=== PATIENT | female | born 1970 | race Caucasian/White ===

== ENCOUNTER 2016-06-23 10:18 | Inpatient (IN) | payer OTHER ==
[~2016-06-23] VITALS: Ht 152.4 cm; Wt 59.0 kg
[~2016-06-23 10:18] MED LIST: ANUHCC PR; APAP/HYDROCODON1 T13 PO; ASACOL400 MG PO; CIPRO500 MG PO; CIPROFLOXACIN500 MG PO; CLINDAMYCIN HC300 MG PO; ELA10 PO; FER300 PO; FERROUS SULFAT325 M2 PO; FLA500 PO; IMU50 PO; LAC PO; LEVAQUIN750 MG PO; LIALDA1.2 GM PO; MIRALAX17 GM/Dose PO; NORCO1 TA2 PO; PREDNISONE50 MG PO; VENTOLIN H0.09 MG/A1 IH; ZYRTEC10 MG PO
--- NOTE | 2016-06-23 12:27 | NUR ---
PT BROUGHT TO ED BY FROM HOME C/O ABDOMINAL PAIN WITH VOMITING AND DIARRHEA X3 WEEKS. PT REPORTS HX OF ULCERTIVE COLITIS AND STATES SHE IS HAVING A FLARE UP, LAST ONE LAST YEAR. PT REPORTS HAVING 4-6 EPISODES OF DIARRHEA WITH BRIGHT RED BLOOD AND VOMITING EACH TIME X3 WEEKS. PT ALSO REPORTS DECREASED APPETITE AND BLQ CRAMPING PAIN. PT A/O X4, CLEAR SPEECH, RESPS EVEN AND UNLABORED, SKIN WARM/DRY TO TOUCH, PALE, ABDOMEN SOFT/ROUND, NON TENDER, NO S/S OF DISTRESS NOTED.
--- NOTE | 2016-06-23 13:18 | NUR ---
MEDICATED ORDERED. NS BOLUS INFUSING.
[2016-06-23 13:22] LABS: BASOPHIL % 0.4 % (0-2); RED CELL DISTRIBUTION WIDTH 13.7 % (11.5-14.5)
[2016-06-23 13:24] LABS: PLATELET COUNT 463 x10^3mcL (130-400)
[2016-06-23 13:27] LABS: CARBON DIOXIDE 29.2 mmol/L (21-32); CHLORIDE SERUM 102 mmol/L (98-107); CREATININE SERUM 0.8 mg/dL (0.6-1.0); GFR1 > 60 mL/min; GLUCOSE SERUM 89 mg/dL (74-106); POTASSIUM SERUM 3.8 mmol/L (3.5-5.1); SODIUM SERUM 140 mmol/L (136-145)
--- NOTE | 2016-06-23 13:38 | NUR ---
TAKEN TO CT. NO SIGNS OF DISTRESS.
[2016-06-23 13:44] LABS: ALBUMIN 3.8 g/dL (3.4-5.0); ALKALINE PHOSPHATASE 85 U/L (46-116); ALT/SGPT 17 U/L (14-59); AST/SGOT 10 U/L (15-37); BILIRUBIN TOTAL 0.35 mg/dL (0.20-1.00); LIPASE 120 IU/L (73-393); MAGNESIUM 1.8 mg/dL (1.8-2.4)
[2016-06-23 13:45] LABS: TOTAL PROTEIN, SERUM 8.8 g/dL (6.4-8.2)
--- NOTE | 2016-06-23 13:51 | NUR ---
PT BACK FROM CT WITH NO INCIDENCE.
--- NOTE | 2016-06-23 14:16 | NUR ---
PT LAYING IN ED GURNEY IN POSITION OF COMFORT, A/O X4, REPORTS PAIN LEVEL DECREASED TO 1/10 ON PAIN SCALE, RESPS EVEN AND UNLABORED, NO S/S OF DISTRESS NOTED. COMFORT MEASURSE IN PLACE, AT BEDSIDE.
--- NOTE | 2016-06-23 15:11 | NUR ---
DR. MALONEY AT BEDSIDE DISCUSSING PLAN OF CARE WITH PT.
--- NOTE | 2016-06-23 15:17 | NUR ---
RESIDENT AT BEDSIDE FOR EVAL.
--- NOTE | 2016-06-23 15:47 | NUR ---
REPORT CALLED TO DAVID RIVERA. PT TO BE ADMITTED TO TELE ROOM 220B. PT IN NO DISTRESS.
[2016-06-23 15:58] LABS: CHOLESTEROL/HDL RATIO 4.8
[2016-06-23 16:06] LABS: UA SPECIFIC GRAVITY >=1.030 (1.005-1.035); microscopic required? YES; urine erythrocyte 1+ (NEGATIVE)
[2016-06-23 16:09] LABS: T3 TOTAL 1.21 ng/mL
[2016-06-23 16:17] VITALS: BP 102/65
[2016-06-23 16:20] LABS: AMPHETAMINE QUAL UR NONE DETECTED (NEG <=1000)
[2016-06-23 16:22] LABS: FREE T4 1.22 ng/dL (0.76-1.46); FREE THYROXINE INDEX 2.8 ug/dL (1.4-4.5); T4(THYROXINE) 9.8 ug/dL (4.7-13.3)
--- NOTE | 2016-06-23 16:29 | NUR ---
REC'D AOX4, SPEECH CLEAR. C/O DIZZINESS, LIGHT-HEADEDNESS, BLOODY DIARRHEA THIS AM AND ABD PAIN. AT THE BEDSIDE. ON RA, NO SOB NOTED. ATTACHED TELE. DENIES CHEST PAIN. IV ON RAC WNL. ORIENTED PT TO ROOM AND SURROUNDINGS. CALL LIGHT WITHIN REACH, PROVIDED REPORT TO DAVID RIVERA
--- NOTE | 2016-06-23 16:45 | NUR ---
PATIENT CALM AND COOPERATIVE. PERIPHERAL PULSES PALPABLE NO EDEMA. STATES HAD BLOODY LOOSE DIARRHEA THIS MORNING. PATIENT DENIES DISCOMFORT AT THIS TIME. REQUESTING FOR ICE CHIPS, PROVIDED. DENIES NAUSEA, WILL CONT TO MONITOR.
--- NOTE | 2016-06-23 17:25 | NUR ---
PATIENT HAD VOMIT EPISODE X1, SMALL DARK AMOUNT. ZOFRAN GIVEN. WILL CONT TO MONITOR.
[2016-06-23 17:49] VITALS: BP 105/68
--- NOTE | 2016-06-23 18:45 | NUR ---
PATIENT STATES FEELING BETTER AND DENIES NAUSEA AT THIS TIME AFTER ZOFRAN. IV SITE WNL, INFUSING NS WELL. NO SIGNFICANT CHANGE IN CONDITION. WILL CONT TO MONITOR AND ENDORSE TO NOC RN.
--- NOTE | 2016-06-23 19:40 | NUR ---
RECEIVED Pt AAOX3 CALM AND COOPERATIVE WITH CARE. DENIES ANY CHEST PAIN. LUNG SOUNDS ARE CTA BILATERALLY. ACTIVE BOWEL SOUNDS X4 QUADS. DENIES ANY ABD DISCOMFORT AT THIS TIME. VOIDS FREELY. IV SITE TO LAC IS PATENT. RADIAL AND PEDAL PULSES ARE PRESENT. MOVES ALL EXTREMITIES, NO EDEMA NOTED. SCD'S IN PLACE. RE-ORIENTED TO ROOM AND CALL LIGHT SYSTEM WITHIN EASY REACH. WILL CONTINUE TO MONITOR.
--- NOTE | 2016-06-23 20:48 | NUR ---
MEEDICATED FOR ABD PAIN AT 6/10 WITH MORPHINE IV. WILL CONTINUE TO MONITOR.
--- NOTE | 2016-06-23 20:51 | NUR ---
GAVE PT MORPHINE 2 MG IVP FOR C/O PAIN TO ABD, SCALE OF 8/10. RESP IS NOT LABORED, ON ROOM AIR. WILL CONTINUE TO MONITOR.
[2016-06-23 22:25] VITALS: BP 96/67
--- NOTE | 2016-06-23 22:50 | NUR ---
Pt's OWN MEDICATION ZYRTEC TAKEN DOWN TO PHARMACY BY DR. SPAIN. Pt TAKES 1 TAB PO QD FOR ALLERGIES. AWARE.
--- NOTE | 2016-06-23 23:45 | NUR ---
Pt DENIES ANY PAIN AT THIS TIME.
--- NOTE | 2016-06-24 03:44 | NUR ---
C/O NAUSEA NO VOMITING, MEDICATED WITH ZOFRAN IV. WILL CONTINUE TO MONITOR.
--- NOTE | 2016-06-24 05:31 | NUR ---
Pt MEDICATED NEEDED FOR NAUSEA AND ABDOMINAL PAIN. NO VOMITING NOTED. VOIDS FREELY. NO BOWEL MOVEMENT. IV SITE REMAINS PATENT. PT IS NPO. SAFETY AND COMFORT MEASURES REMAIN IN PLACE. WILL CONTINUE TO MONITOR.
[2016-06-24 05:59] VITALS: BP 109/64
[2016-06-24 06:26] LABS: BASOPHIL % 0.5 % (0-2); CALCIUM 8.2 mg/dL (8.5-10.1); CARBON DIOXIDE 26.5 mmol/L (21-32); CHLORIDE SERUM 106 mmol/L (98-107); CREATININE SERUM 0.7 mg/dL (0.6-1.0); GFR1 > 60 mL/min; GLUCOSE SERUM 85 mg/dL (74-106); MAGNESIUM 1.8 mg/dL (1.8-2.4); PHOSPHOROUS 3.3 mg/dL (2.5-4.9); PLATELET COUNT 341 x10^3mcL (130-400); POTASSIUM SERUM 3.4 mmol/L (3.5-5.1); RED CELL DISTRIBUTION WIDTH 13.8 % (11.5-14.5); SODIUM SERUM 140 mmol/L (136-145)
--- NOTE | 2016-06-24 06:46 | NUR ---
I HAVE REVIEWED THE DATA COLLECTION BY JASE (NAME):JUSTO MCKAY ENTERED ON (DATE/TIME): 06/23/161939 I CONCUR WITH THE DATA AND ANY EXCEPTIONS OR COMMENTS ARE LISTED BELOW:
--- NOTE | 2016-06-24 07:10 | NUR ---
BEDSIDE REPORT RECEIVED FROM [facility] SHIFT NURSE AT THIS TIME. PATIENT ASLEEP, NO SIGNS OF DISTRESS NOTED, BREATHING EVEN AND UNLABORED. ALL SAFETY MEASURES IN PLACE, WILL CONTINUE TO MONITOR.
--- NOTE | 2016-06-24 07:50 | NUR ---
TELE DISCONTINUED AT THIS TIME PER MD ORDER AND RETURNED TO RIGGING ENGINEER, NS IVF RATE CHANGED TO 60 ML/HR PER ORDER, INFUSING TO LAC, NO REDNESS OR INFILTRATION NOTED TO SITE. PATIENT STATES SHE HAS A HEADACHE, PRESSURE LIKE, CONSTANT, ALL ACROSS HER FOREHEAD 6/10, MEDICATED FIORECIT (SEE EMAR). ON ROOM AIR, SCD'S IN PLACE, ALL NEEDS ATTENDED TO, ALL SAFETY MEASURES IN PLACE, WILL CONTINUE TO MONITOR.
--- NOTE | 2016-06-24 09:20 | NUR ---
ROUNDS MADE AT THIS TIME WITH MD TEAM, CHARGE NURSE JASMYNE, AND DR CORNEJO. PATIENT ASLEEP, EASILY AROUSED VIA VERBAL STIMULI. ALL QUESTIONS AND CONCERNS ADDRESSED, DR AGRAWAL MADE AWARE OF DR GREENE ASSESSING THE PATIENT. ALL SAFETY MEASURES IN PLACE, WILL CONTINUE TO MONITOR.
[2016-06-24 10:11] VITALS: BP 95/52
--- NOTE | 2016-06-24 12:04 | NUR ---
PATIENT AWAKE, ALERT, NO SIGNS OF DISTRESS NOTED, AT BEDSIDE. ALL NEEDS ATTENDED TO, ALL SAFETY MEASURES IN PLACE, WILL CONTINUE TO MONITOR.
[2016-06-24 14:56] VITALS: BP 101/63
--- NOTE | 2016-06-24 15:38 | NUR ---
Initial Nutrition Assessment Dx: GI D/O 2/2 Ulcerative Colitis Exacerbation vs perictal fistula PMHx: Ulcerative Colitis X 20+ years PSHx: (2007 no complications), L foot surgery, 3 surgeries for fistula, last performed by Dr. Salas Labs: K+ 3.4L, BG 85, Alb 3.8, H/H 11.4/35L Meds: Cipro, colace, D50, fioricet, humulin R, lactinex, morphine, NS, zofran Current Diet Order: Full Liquid (06/24-Lunch) PO Intakes: NPO for breakfast, 2% L (06/24) Ht: 152.4cm,60". Wt: 130lbs, 58.96kg. BMI: 25.4 kg/m2 (Overweight) IBW: 100lb, 45.4 kg. %IBW: 130%. UBW: 141lbs x 3 weeks ago Age: 45 Y/O F Food Allergies: Kiwi Skin: intact. Sahil:21 Edema: None noted GI:C/O loose stools, mild nausea, bowel sounds active, abd soft/round . Last BM:3 loose (06/24) RN Trigger: N/V/D >3 days; Poor PO intake >3 days Pt admitted w/GI D/O 2/2 Ulcerative Colitis Exacerbation vs perictal fistula. As per doctor's progress note 06/24-Patient still having severe abdominal pain today with multiple episodes of diarrhea. Patient also complaining of fatigue and headache. Pt seen at bedside w/ no family present, pt requested interview in Malay, the RD agreed and translated, the pt reports feeling nauseous and C/O diarrhea, did not vomit today but was having emesis episodes last night w/ PM RN who was wearing lots of perfume, states perfumes and heavy smells make her vomit, only tried a couple of spoons of ice cream but did not want to eat anything else for lunch, states cold foods like ice cream calms her stomach, UBW: 14lbs x 1 wk ago, during that time the pt was having UC flare ups to the point where the pt was unable to keep food down, attributes the wt loss to her GI symptoms and lack of appetite, the RD reviewed w/ pt on low residue diet, Cipro DNI, and tips to manage nausea + diarrhea at bedside, educational handouts in Malay given, the pt was highly receptive and engaged, was open to trying Boost to aid in low PO intakes but only strawberry flavour. The RD F/U Dr. Harkins regarding nutrition findings and recs, he was agreeable and implemented. As per bed huddles 06/24- Dr. Alan recommends no procedure at this time. Malnutrition alert form completed 06/24. Problem with: N: Yes. V: None. D: Yes. C: None. Problem with: Chewing: None. Swallowing: None. Current Appetite: poor, pt has little appetite Recent Weight Change: 11lbs. % Weight Change: 8 (Severe) Vitamin/Supplement Use: none Diet at Home: has not been able to keep food down for the past 3 weeks d/t severe N+V w/ diarrhea Physical Activity: none Education: none Estimated Nutritional Needs Based on CBW 130 lb, 58.96kg Energy: 0967-0165 kcal/day (30-35 kcal/kg for Ulcerative Colitis Flare-Up) Protein: 60-71 g/day (1-1.2 g/kg for Ulcerative Colitis Flare-Up) Fluid: 7351-9827 ml/day (30-35 ml/kg for Ulcerative Colitis Flare-Up) or per MD Nutrition Diagnosis 1. Malnutrition related to inadequate protein/energy intake 2/2 Ulcerative Colitis Exacerbation as evidenced by pt C/O loose stools, nausea, meeting 5% of needs, 11lbs wt loss in 3 weeks, % Weight Change: 8, and poor PO intake SPECIAL EDUCATION ASSISTANT Intervention 1. Full Liquid diet w/ Boost TID (720kcals, 30g protein). Make food preferences known. 2. Theragran and Vitamin C 500gm BID for intestinal healing 3. If the pt is able to tolerate diet, consider advancing to Low Residue w/ Boost BID (480kcals, 20g protein). 4. If the pt is unable to tolerate/advance diet w/in 5-7 days, consider TPN. 5. Adjust Zofran + BM regimen PRN 6. Daily wts to assess trends Monitor/Evaluate Goal: PO intakes to meet at least 50% of estimated needs w/ tolerance; No further wt loss during LOS Monitor: PO intakes/tolerance, labs, skin integrity, GI function, wt F/U in 2-3 days as HIGH risk (06/26-06/27)
--- NOTE | 2016-06-24 15:56 | NUR ---
1. Full Liquid diet w/ Boost TID (720kcals, 30g protein). Make food preferences known. 2. Theragran and Vitamin C 500gm BID for intestinal healing 3. If the pt is able to tolerate diet, consider advancing to Low Residue w/ Boost BID (480kcals, 20g protein). 4. If the pt is unable to tolerate/advance diet w/in 5-7 days, consider TPN. 5. Adjust Zofran + BM regimen PRN 6. Daily wts to assess trends
--- NOTE | 2016-06-24 17:44 | NUR ---
PATIENT EDUCATED ON I.S. USE AT THIS TIME. RETURN DEMONSTRATION PROVIDED WITH MARKER RAISED TO 2500 INDICATOR. DIABETIC TEACHING PROVIDED AT THIS TIME WELL. PATIENT VERBALIZED UNDERSTANDING. STATES SALTINE CRACKERS GIVEN HAVE BEEN TOLERATED. ALL SAFETY MEASURES IN PLACE, WILL CONTINUE TO MONITOR.
[2016-06-24 18:20] VITALS: BP 116/66
--- NOTE | 2016-06-24 18:43 | NUR ---
PATIENT MEDICATED WITH FIORICET AT THIS TIME FOR HEADACHE (SEE EMAR). PATIENT AWAKE, ALERT, STATES HEADACHE IS STARTING TO COME BACK, NO SIGNS OF DISTRESS NOTED. WILL CONTINUE TO MONITOR.
--- NOTE | 2016-06-24 20:00 | NUR ---
RECEIVED Pt AAOX4 CALM AND COOPERATIVE WITH CARE. DENIES ANY CHES PAIN. B/P 112/68 HR 81. LUNG SOUNDS ARE CTA BILATERALLY. PULSE OX IS 97% ON ROOM AIR. ACTIVE BOWEL SOUNDS X4 QUADS. C/O ON AND OFF NAUSEA. NO ABD PAIN. TOLERATING FULL LIQUID. VOIDS FREELY. IV SITE TO LAC IS PATENT. SKIN IS INTACT. RADIAL AND PEDAL PULSES ARE PRESENT. NO EDEMA NOTED. RE-ORIENTED TO ROOM AND CALL LIGHT SYSTEM WITHIN EASY REACH. WILL CONTINUE TO MONITOR.
--- NOTE | 2016-06-24 21:50 | NUR ---
Pt VOMITED AFTER BEING MEDICATED WITH FIORICET FOR HEADACHE AND ZOFRAN FOR NAUSEA. Pt KEEPS EATING CRACKERS AND DRINKING WATER. Pt ASKED TO REFRAIN FROM EATING AT THIS TIME IS NAUSEATED AND VOMITING.
--- NOTE | 2016-06-24 22:00 | NUR ---
I HAVE REVIEWED THE DATA COLLECTION BY JEWEL SORTER (NAME): ENTERED ON (DATE/TIME): I CONCUR WITH THE DATA AND ANY EXCEPTIONS OR COMMENTS ARE LISTED BELOW: JUSTO MCKAY, PT C/O NAUSEA ZOFRAN 4MG IV GIVEN PRESCRIBED.
[2016-06-24 22:25] VITALS: BP 108/71
--- NOTE | 2016-06-24 23:03 | NUR ---
NOTIFIED THAT Pt KEEPS VOMITING AND ZOFRAN IV DID NOT HELP MUCH. Pt REQUESTING SOMETHING ELSE.WILL CONTINUE TO MONITOR.
--- NOTE | 2016-06-24 23:16 | NUR ---
STILL C/O NAUSEA, PHENERGAN 12.5 MG IVP GIVEN PRESCRIBED, WILL CONTINUE TO MONITOR.
--- NOTE | 2016-06-24 23:21 | NUR ---
Pt MEDICATED WITH PHENERGAN IV ORDERED, NOW C/O ANXIETY, Pt APPEARS VERY DROWSY, REQUESTING MORE IV MEDICATION TO RELAX HER. DR. SPAIN MADE AWARE AND SUGGESTED TO GIVE HER THE AMBIEN 5 MG PO THAT Pt REFUSED EARLIER. Pt ASKED TO TURN HER LIGHT OFF AND TRY TO SLEEP. CALL LIGHT WITHIN REACH. WILL CONTINUE TO MONITOR.
[2016-06-24 23:38] VITALS: BP 115/77
--- NOTE | 2016-06-24 23:38 | NUR ---
Pt KEEPS CALLING FOR NURSE, STATING SHE IS VERY ANXIOUS. B/P TAKEN 115/77 HR 85 MAP 87 PULSE OX 100% R/A. PLACED ON 2L/NC FOR COMFORT REQUESTED BY Pt. Pt ASKED TO STAY IN BED. WILL CONTINUE TO MONITOR.
--- NOTE | 2016-06-25 01:43 | NUR ---
Pt RESTING COMFORTABLY, APPEARS TO BE SLEEPING. CALL LIGHT WITHIN REACH. WILL CONTINUE TO MONITOR.
--- NOTE | 2016-06-25 05:28 | NUR ---
Pt VOMITED X 2-3 TIMES DURING THE NIGHT, SHE STATES IT WAS THE STRAWBERRY BOOST DRINK THAT WAS TOO SWEAT WHICH CAUSE HER TO VOMIT. MEDICATED WITH ZOFRAN IV WHICH Pt STATES DID NOT HELP. RE-MEDICATED WITH PHENERGAN IV FOR NAUSEA AND Pt BECAME VERY ANXIOUS AND CONTINUOSLY CALLING THE NURSE IN THE ROOM TO ASK FOR MORE IV MEDICATION. DR. SPAIN MADE AWARE AND ASK TO GIVE HER AMBIEN WHICH Pt HAD REQUESTED EARLIER. AFTER SOME TIME Pt SLEPT AND REMAINS QUIETLY RESTING/SLEEPING. CALL LIGHT WITHIN REACH. WILL CONTINUE TO MONITOR.
[2016-06-25 05:40] VITALS: BP 105/70; BP 195/70
[2016-06-25 06:24] LABS: CALCIUM 8.1 mg/dL (8.5-10.1); CARBON DIOXIDE 25.7 mmol/L (21-32); CHLORIDE SERUM 108 mmol/L (98-107); CREATININE SERUM 0.7 mg/dL (0.6-1.0); GFR1 > 60 mL/min; GLUCOSE SERUM 97 mg/dL (74-106); MAGNESIUM 1.7 mg/dL (1.8-2.4); PHOSPHOROUS 3.2 mg/dL (2.5-4.9); POTASSIUM SERUM 3.6 mmol/L (3.5-5.1); SODIUM SERUM 143 mmol/L (136-145)
[2016-06-25 07:02] LABS: BASOPHIL % 0.4 % (0-2); PLATELET COUNT 337 x10^3mcL (130-400); RED CELL DISTRIBUTION WIDTH 13.3 % (11.5-14.5)
--- NOTE | 2016-06-25 08:00 | NUR ---
ALERT AND ORIENTED. DID NOT EAT WELL FOR BREAKFAST. FULL LIQUIDS. C/O INTERMITTENT NAUSEA. STOOLS ARE LOOSE. NO TELE. VSS. NS INFUSING 60 CC HOUR. RECEIVES FLAGYL AND CIPRO IV ABX.BREATHING FREELY ON RA. INDEPENDENT WITH ADL'S.NO C/O PAIN AT THIS TIME. CALL LIGHT WITHIN REACH.
[2016-06-25 09:06] VITALS: BP 120/66
[2016-06-25] MEDS ORDERED: NORCO1 TA2 PO (09:18)
[2016-06-25] MEDS ORDERED: FLA500 PO (09:35)
[2016-06-25] MEDS ORDERED: CIPRO500 MG PO (09:36)
[2016-06-25] MEDS ORDERED: LAC PO (09:42)
[2016-06-25] MEDS ORDERED: MOT600 PO (09:52)
[2016-06-25] MEDS ORDERED: PROMETHAZINE25 M3 PO (09:59)
[2016-06-25 10:17] VITALS: BP 120/66
[2016-06-25] MEDS ORDERED: MERCAPTOPURINE50 M1 PO (12:56)
[2016-06-25] MEDS ORDERED: PRE20 PO (12:57)
[2016-06-25] MEDS ORDERED: VITC PO (12:58)
[2016-06-25] MEDS ORDERED: COL100 PO (13:01)
--- NOTE | 2016-06-25 16:02 | NUR ---
PT TO BE DC'D TO HOME WHEN HER GETS HERE. NO TELE. IV DC'D. ALL DC INSTRUCTIONS REVIEWED WITH AND SIGNED BY PT. TO F/U W/ DR. BOWMAN 06/30/16. PRESCRIPTIONS GIVEN.
== END 2016-06-25 16:12 | disposition home or self-care (01) | DRG 245 ==
LOC: ED 10:18 → DU 15:04 → MU 15:04 → DU 16:02 → MU 06-24 08:06
PROVIDERS: Emergency Medicine; ADMIT Family Medicine
DX: K51.913 Ulcerative colitis, unspecified with fistula (principal); N17.0 Acute kidney failure with tubular necrosis; J30.9 Allergic rhinitis, unspecified; R80.8 Other proteinuria; N83.201 Unspecified ovarian cyst, right side; R65.10 Systemic inflammatory response syndrome (SIRS) of non-infectious origin without acute organ dysfunction; Z68.25 Body mass index [BMI] 25.0-25.9, adult; Z88.8 Allergy status to other drugs, medicaments and biological substances; Z91.018 Allergy to other foods; Z83.3 Family history of diabetes mellitus; Z82.49 Family history of ischemic heart disease and other diseases of the circulatory system
CPT/HCPCS: 80307; 82962; 83880; 84439; J0744; J2270; J2405; J2550; J3490; J7030; J7512

== ENCOUNTER 2016-07-26 00:38 | Emergency (ER) | payer OTHER ==
[~2016-07-26 00:38] MED LIST changes: +COL100 PO; +MERCAPTOPURINE50 M1 PO; +MOT600 PO; +PRE20 PO; +PROMETHAZINE25 M3 PO; +VITC PO
[2016-07-26 03:00] VITALS: BP 124/82
== END 2016-07-26 01:35 | disposition left against medical advice (07) ==
LOC: ED 00:38
DX: K62.89 Other specified diseases of anus and rectum (principal); G43.909 Migraine, unspecified, not intractable, without status migrainosus; Z88.8 Allergy status to other drugs, medicaments and biological substances

== ENCOUNTER 2016-08-20 06:54 | Day surgery (SDC) | payer OTHER ==
[~2016-08-20] VITALS: Ht 152.4 cm; Wt 67.6 kg
[2016-08-20 07:33] VITALS: BP 113/68
[2016-08-20 10:33] VITALS: BP 107/68
== END 2016-08-20 10:45 | disposition home or self-care (01) ==
LOC: DS 06:54 → OR 08:30 → GI 08:30 → DS 10:45
PROVIDERS: Internal Medicine Gastroenterology
PROC: 0DBE8ZX Excision of Large Intestine, Via Natural or Artificial Opening Endoscopic, Diagnostic (ICD-10-PCS; 2016-08-20)
PROC: 0DBB8ZX Excision of Ileum, Via Natural or Artificial Opening Endoscopic, Diagnostic (ICD-10-PCS; principal; 2016-08-20 08:30)
DX: K51.013 Ulcerative (chronic) pancolitis with fistula (principal); Z68.28 Body mass index [BMI] 28.0-28.9, adult
CPT/HCPCS: 45378; J1200; J1610; J2250; J2310; J3010; J3490

== ENCOUNTER 2017-01-27 16:44 | Emergency (ER) | payer OTHER, MEDICAID ==
[2017-01-27 18:24] LABS: BASOPHIL % 0.4 % (0-2); PLATELET COUNT 337 x10^3mcL (130-400); RED CELL DISTRIBUTION WIDTH 13.4 % (11.5-14.5)
[2017-01-27 18:28] LABS: CALCIUM 8.3 mg/dL (8.5-10.1); CARBON DIOXIDE 32.9 mmol/L (21-32); CHLORIDE SERUM 104 mmol/L (98-107); CREATININE SERUM 0.8 mg/dL (0.6-1.0); GFR1 > 60 mL/min; GLUCOSE SERUM 97 mg/dL (74-106); POTASSIUM SERUM 3.9 mmol/L (3.5-5.1); SODIUM SERUM 140 mmol/L (136-145)
[2017-01-27 18:33] LABS: ALKALINE PHOSPHATASE 91 U/L (46-116); ALT/SGPT 20 U/L (14-59); AST/SGOT 12 U/L (15-37); BILIRUBIN TOTAL 0.2 mg/dL (0.20-1.00); TOTAL PROTEIN, SERUM 7.9 g/dL (6.4-8.2)
[2017-01-27 18:34] LABS: ALBUMIN 3.3 g/dL (3.4-5.0)
[2017-01-27 21:27] VITALS: BP 105/82
== END 2017-01-27 21:27 | disposition home or self-care (01) ==
LOC: ED 16:44
PROVIDERS: Emergency Medicine
PROC: BW2G1ZZ Computerized Tomography (CT Scan) of Pelvic Region using Low Osmolar Contrast (ICD-10-PCS; principal; 2017-01-27)
PROC: 3E033NZ Introduction of Analgesics, Hypnotics, Sedatives into Peripheral Vein, Percutaneous Approach (ICD-10-PCS; 2017-01-27)
PROC: 3E033GC Introduction of Other Therapeutic Substance into Peripheral Vein, Percutaneous Approach (ICD-10-PCS; 2017-01-27)
DX: K62.5 Hemorrhage of anus and rectum (principal); K51.90 Ulcerative colitis, unspecified, without complications; G43.909 Migraine, unspecified, not intractable, without status migrainosus
CPT/HCPCS: J2270; J2405; J2543; J3490; J7030; Q9967

== ENCOUNTER 2018-07-14 08:51 | Emergency (ER) | payer MEDICAID, OTHER | END 2018-07-14 09:54 | disposition home or self-care (01) | LOC: ED 08:51 ==

== ENCOUNTER 2018-11-01 08:01 | Emergency (ER) | payer OTHER ==
[~2018-11-01] VITALS: Ht 157.5 cm; Wt 65.8 kg
[2018-11-01 08:07] VITALS: BP 121/74; Ht 157.5 cm; Wt 65.8 kg
== END 2018-11-01 08:30 | disposition left against medical advice (07) ==
LOC: ED 08:01
DX: M67.472 Ganglion, left ankle and foot (principal); M72.2 Plantar fascial fibromatosis; G43.909 Migraine, unspecified, not intractable, without status migrainosus; Z98.890 Other specified postprocedural states; Z91.018 Allergy to other foods; Z88.8 Allergy status to other drugs, medicaments and biological substances

== ENCOUNTER 2019-04-08 23:08 | Emergency (ER) | payer OTHER ==
[~2019-04-08] VITALS: Ht 157.5 cm; Wt 67.6 kg
[2019-04-08 23:21] VITALS: BP 126/92; Ht 157.5 cm; Wt 67.6 kg
== END 2019-04-09 00:35 | disposition home or self-care (01) ==
LOC: ED 23:08
DX: K08.89 Other specified disorders of teeth and supporting structures (principal); G43.909 Migraine, unspecified, not intractable, without status migrainosus; Z91.018 Allergy to other foods; Z88.8 Allergy status to other drugs, medicaments and biological substances
CPT/HCPCS: J1885

== ENCOUNTER 2019-05-30 21:50 | Emergency (ER) | payer OTHER ==
[~2019-05-30] VITALS: Ht 157.5 cm; Wt 66.7 kg
[2019-05-30 22:11] VITALS: BP 117/78; Ht 157.5 cm; Wt 66.7 kg
== END 2019-05-30 23:09 | disposition home or self-care (01) ==
LOC: ED 21:50
DX: L23.9 Allergic contact dermatitis, unspecified cause (principal); G43.909 Migraine, unspecified, not intractable, without status migrainosus; Z91.018 Allergy to other foods; Z88.8 Allergy status to other drugs, medicaments and biological substances
CPT/HCPCS: J7512

== ENCOUNTER 2019-06-24 08:40 | Emergency (ER) | payer OTHER ==
[~2019-06-24] VITALS: Ht 152.4 cm; Wt 66.7 kg
[2019-06-24 08:51] VITALS: BP 109/67; Ht 152.4 cm; Wt 66.7 kg
== END 2019-06-24 09:19 | disposition home or self-care (01) ==
LOC: ED 08:40
DX: J04.0 Acute laryngitis (principal); G43.909 Migraine, unspecified, not intractable, without status migrainosus; Z88.8 Allergy status to other drugs, medicaments and biological substances; Z91.018 Allergy to other foods

== ENCOUNTER 2019-11-15 03:59 | Emergency (ER) | payer OTHER, SELFPAY ==
[~2019-11-15] VITALS: Ht 154.9 cm; Wt 63.5 kg
[2019-11-15 04:00] VITALS: Ht 154.9 cm; Wt 63.5 kg
[2019-11-15 05:40] VITALS: BP 108/49
== END 2019-11-15 05:32 | disposition home or self-care (01) ==
LOC: ED 03:59
DX: J02.9 Acute pharyngitis, unspecified (principal); Z20.828 Contact with and (suspected) exposure to other viral communicable diseases; S83.92XA Sprain of unspecified site of left knee, initial encounter; W19.XXXA Unspecified fall, initial encounter; Y93.89 Activity, other specified; Y92.89 Other specified places as the place of occurrence of the external cause; Y99.8 Other external cause status; Z88.8 Allergy status to other drugs, medicaments and biological substances; G43.909 Migraine, unspecified, not intractable, without status migrainosus; Z91.018 Allergy to other foods
CPT/HCPCS: Q0092; U0003-CS

== ENCOUNTER 2020-01-24 09:30 | Emergency (ER) | payer OTHER, SELFPAY ==
[~2020-01-24] VITALS: Ht 160 cm; Wt 63.5 kg
[2020-01-24 09:32] VITALS: BP 111/80; Ht 160 cm; Wt 63.5 kg
== END 2020-01-24 10:44 | disposition home or self-care (01) ==
LOC: ED 09:30
DX: M79.10 Myalgia, unspecified site (principal); G43.909 Migraine, unspecified, not intractable, without status migrainosus; Z20.828 Contact with and (suspected) exposure to other viral communicable diseases; Z98.890 Other specified postprocedural states; Z91.018 Allergy to other foods; Z88.8 Allergy status to other drugs, medicaments and biological substances
CPT/HCPCS: U0003